=== PATIENT | female | born 1985 | race Caucasian/White ===

== ENCOUNTER → 2019-06-19 | Outpatient (CLI) | payer OTHER ==
--- NOTE | 2019-06-19 13:05 | US ---
EXAMINATION TYPE: Transabdominal DATE OF EXAM: 06/19/2019 12:37 PM COMPARISON: NONE CLINICAL HISTORY: absent heart sounds O76. Office could not find heart tones, EXAM PERFORMED: OBTA EXAM MEASUREMENTS: GESTATIONAL AGE / DATING Physician Established: Not yet established Dates by LMP: (13 weeks/1 days) EDC: 12/24/2019 Dates by First Scan: No previous this is first scan Dates by Current Scan for: (12 weeks/6 days) EDC: 12/26/2019 MATERNAL ANATOMY Uterus: 12.6 x 8.5 x 7.4cm Right Ovary: 4.4 x 2.1 x 2.9cm Left Ovary: 2.9 x 3.2 x 2.2cm Post CDS / Adnexa: wnl Presence of free fluid: no Presence of corpus luteal cyst: 1.9cm on the right ovary Presence of subchorionic bleed: no GESTATION / SURVEY CRL: 6.4 (12 weeks/6 days) MSD: wnl Yolk Sac (normal less than 6mm): not seen Heart Rate: 161 bpm Rhythm: Normal IUP: Live IUP Date of LMP: 03/19/2019 IMPRESSION: Single live intrauterine with a sonographic age of 12 weeks and 6 days and estimated date o f delivery of 12/26/2019, concordant with menstrual age. Heart rate is seen measuring 161 bpm.
== END | disposition home or self-care (01) ==
LOC: RADUSWWP 12:17
PROVIDERS: ATTEND Obstetrics & Gynecology
DX: O76 Abnormality in fetal heart rate and rhythm complicating labor and delivery (principal); Z3A.12 12 weeks gestation of pregnancy
CPT/HCPCS: 76801

== ENCOUNTER → 2019-07-27 | Outpatient (CLI) | payer OTHER ==
[2019-07-27 13:08] LABS: HCT 25.6 % (34.0-46.0); HGB 8.4 gm/dL (11.4-16.0); MCH 30.6 pg (25.0-35.0); MCHC 32.8 g/dL (31.0-37.0); MCV 93.1 fL (80.0-100.0); Mean Platelet Volume 10.5; Platelet Count 217 k/uL (150-450); RBC 2.75 m/uL (3.80-5.40); RDW 11.7 % (11.5-15.5); WBC 8.5 k/uL (3.8-10.6)
[2019-07-27 18:57] LABS: T4, Free (Free Thyroxine) 1.1 ng/dL (0.80-1.80)
[2019-07-27 19:20] LABS: T3, Uptake 19 % (23-37)
[2019-07-27 19:52] LABS: Hepatitis B Surface Antigen Non-Reactive (Non-Reactive)
[2019-07-27 20:38] LABS: HIV 1 AB Non-Reactive (Non-Reactive); HIV 2 AB Non-Reactive (Non-Reactive); HIV AB P24 Non-Reactive (Non-Reactive); HIV P24 AG Non-Reactive (Non-Reactive)
[2019-07-28 04:18] LABS: Toxoplasma Antibody (IgG) <3.0 IU/mL (<7.2); Toxoplasma Antibody (IgM) <3.0 AU/mL (<8.0)
[2019-07-28 10:48] LABS: Alpha Fetoprotein 48.4 ng/mL; Alpha Fetoprotein (M.O.M) 1.02; B-HCG (M.O.M.) 0.84; Gestational Age (days) 2; Human Chorionic Gonadotropin 14.7 IU/mL; Inhibin A (M.O.M.) 0.72; Interpretation SeeBelow; Maternal Age at EDD (Yrs) 34; Smoker Yes; Unconjugated Estriol (M.O.M.) 1.15
== END | disposition home or self-care (01) ==
LOC: LABWHC1 12:43
PROVIDERS: ATTEND Obstetrics & Gynecology
DX: Z34.82 Encounter for supervision of other normal pregnancy, second trimester (principal); Z3A.00 Weeks of gestation of pregnancy not specified
CPT/HCPCS: 36415; 82105; 82565; 82677; 82947; 84439; 84443; 84479; 84702; 85027; 86336; 86762; 86777; 86778; 86780; 86850; 86900; 86901; 87340; 87390

== ENCOUNTER 2019-09-09 12:15 | Outpatient (CLI) | payer OTHER ==
[2019-09-09 13:25] LABS: Basophils % (A) 0 %; Eosinophils # (A) 0.2 k/uL (0-0.7); Eosinophils % (A) 2 %; HCT 23.8 % (34.0-46.0); HGB 7.8 gm/dL (11.4-16.0); Lymphocytes # (A) 2.8 k/uL (1.0-4.8); Lymphocytes % (A) 34 %; MCH 30.8 pg (25.0-35.0); MCHC 32.8 g/dL (31.0-37.0); MCV 93.8 fL (80.0-100.0); Mean Platelet Volume 8.6; Monocytes # (A) 0.5 k/uL (0-1.0); Monocytes % (A) 6 %; Neutrophils # (A) 4.6 k/uL (1.3-7.7); Neutrophils % (A) 56 %; Platelet Count 263 k/uL (150-450); RBC 2.54 m/uL (3.80-5.40); RDW 12.1 % (11.5-15.5); WBC 8.3 k/uL (3.8-10.6)
[2019-09-09 13:52] LABS: ALT 12 U/L (4-34); AST 17 U/L (14-36); African American GFR (CKD) >90 (>60 ml/min/1.73 sqM); Blood Urea Nitrogen 7 mg/dL (7-17); LDH 355 U/L (313-618); Non-African American GFR(CKD) >90 (>60 ml/min/1.73 sqM)
[2019-09-09 14:00] LABS: Protein/Creatinine Ratio,Urine 1.106
[2019-09-09 14:06] LABS: Appearance,Urine Clear (Clear); Bacteria,Urine Rare /hpf; Bilirubin,Urine Negative (Negative); Blood,Urine Small (Negative); Color,Urine Yellow; Glucose,Urine (UA) Negative (Negative); Granular Casts,Urine 6 /lpf (0); Hyaline Casts,Urine 4 /lpf (0-2); Ketones,Urine Negative (Negative); Leukocyte Esterase,Urine Negative (Negative); Mucus,Urine Rare /hpf; Nitrite,Urine Negative (Negative); Protein,Urine 1+ (Negative); RBC,Urine 6 /hpf (0-5); Specific Gravity,Urine 1.012 (1.001-1.035); Squamous Epithelial Cell,Urine <1 /hpf (0-4); Urobilinogen,Urine <2.0 mg/dL (<2.0); WBC,Urine 2 /hpf (0-5)
--- NOTE | 2019-09-09 16:33 | P.MSEPDOC ---
Presenting Problems - Arrival Data Date of Arrival on Unit: 09/09/19 Time of Arrival on Unit: 12:15 Mode of Transport: Ambulatory - Complaint OB-Reason for Admission/Chief Complaint: PIH Comment: pt sent to triage with orders for pih labs, pt had bp 152/90 in office and +2 protein in urine Medical History - Information : 5 Para: 3 Term: 3 : 0 Abortions: Spontaneous or Elective: 1 Number of Living Children: 3 - Gestational Age Gestational Age by PARUL (wks/days): 24 Weeks and 4 Days Review of Systems - Review of Systems Constitutional: No problems Breast: No problems ENT: No problems Cardiovascular: No problems Respiratory: No problems Gastrointestinal: No problems Genitourinary: No problems Musculoskeletal: No problems Neurological: No problems Skin: No problems Physician Notification (Pre) - Physician Notified Physician Notified Date: 09/09/19 Physician Notified Time: 14:52 New Order Received: Yes (D/c home with 24 hour urine instructions) Disposition - Disposition OB Disposition: Discharge to home Discharge Date: 09/09/19 Discharge Time: 15:15 I agree with the RN Medical Screening Exam: Yes Risk & Benefit of care provided described in d/c instruction: Yes Diagnosis: GESTATIONAL PROTEINURIA, SECOND TRIMESTER
== END 2019-09-09 15:15 | disposition home or self-care (01) ==
LOC: FBPOP 12:15
PROVIDERS: ATTEND Obstetrics & Gynecology
DX: O12.12 Gestational proteinuria, second trimester (principal); Z3A.24 24 weeks gestation of pregnancy
CPT/HCPCS: 81001; 82565; 82570; 83615; 84156; 84450; 84460; 84520; 84550; 85025

== ENCOUNTER 2019-09-10 18:57 | Outpatient (CLI) | payer OTHER ==
[2019-09-10 20:48] LABS: Total Protein 24 Hour,Urine 825 mg/24hr (42.0-225.0); Total Volume 24 Hour,Urine 1250 mls (800-1800)
[2019-09-10 21:39] VITALS: BP 162/90; PULSE 84; RESP 16; TEMP 98.1
--- NOTE | 2019-09-10 22:10 | P.MSEPDOC ---
Presenting Problems - Arrival Data Date of Arrival on Unit: 09/10/19 Time of Arrival on Unit: 18:57 Mode of Transport: Ambulatory - Complaint OB-Reason for Admission/Chief Complaint: PIH Medical History - Information : 5 Para: 3 Term: 3 : 0 Abortions: Spontaneous or Elective: 1 Number of Living Children: 3 - Gestational Age Gestational Age by PARUL (wks/days): 24 Weeks and 5 Days - History Complications: Chronic HTN, Smoker Review of Systems - Review of Systems Constitutional: No problems Breast: No problems ENT: No problems Cardiovascular: No problems Respiratory: No problems Gastrointestinal: No problems Genitourinary: No problems Musculoskeletal: No problems Neurological: No problems Skin: No problems Vital Signs - Temperature Temperature: 98.1 F Temperature Source: Temporal Artery Scan - Pulse Right Brachial Pulse Rate: 84 Pulse Assessment Method: Automatic Cuff - Respirations Respiratory Rate: 16 Oxygen Delivery Method: Room Air O2 Sat by Pulse Oximetry: 100 - Blood Pressure Right Arm Blood Pressure: 162/90 Blood Pressure Mean: 114 Blood Pressure Source: Automatic Cuff Medical Screen Scoring (Pre) - Cervical Exam Dilation: Exam Deferred Effacement: Exam Deferred Membranes: Intact - Uterine Contractions Frequency: N/A Duration: N/A Intensity: N/A - Maternal Vital Signs Maternal Temperature: N/A Maternal Blood Pressure: N/A Signs of Preeclampsia: N/A Maternal Respirations: N/A - Maternal Trauma Maternal Trauma: N/A - Assessment - Baby A Baseline FHR: 140 Heart Rate - NICHD Category: Category I (Normal) = 0 NST: Reactive Position: N/A Station: N/A - Total Score - Baby A Total Score - Baby A: 0 - Total Score - Baby B Total Score - Baby B: 0 - Total Score - Baby C Total Score - Baby C: 0 - Level of Risk - Baby A Level of Risk - Baby A: Low (0-5) - Level of Risk - Baby B Level of Risk - Baby B: Low (0-5) - Level of Risk - Baby C Level of Risk - Baby C: Low (0-5) Physician Notification (Pre) - Physician Notified Physician Notified Date: 09/10/19 Physician Notified Time: 21:16 New Order Received: Yes - Notification Comment Comment: Dr. Carlson given report on pt in tr. aware of pt hx. Pt 24 urine results given. BPs results. Orders recieved to admit pt obv. Coming in. Dr. Carlson called back. Pt wishes to leave AMA. Pt instructed to attend apt with dr. paz at 10 am on 09/10. AMA consent signed by PT. Disposition - Disposition OB Disposition: Discharge to home (Patient left AGAINST MEDICAL ADVICE) Discharge Date: 09/10/19 Discharge Time: 21:24 I agree with the RN Medical Screening Exam: Yes Risk & Benefit of care provided described in d/c instruction: Yes Diagnosis: RELATED CONDITIONS, UNSPECIFIED, SECOND TRIMESTER (Patient was supposed to state for admission yesterday per Dr. Paz for evlation of proteinuria. Pt refused admission and was insturcted to do a 24 hr and return today. Patient returned at 7pm. Initial BP elevated to 162/90. Serial BPs done while awaiiting 24hr urine were 130-140/80's. 24hr urine returned elevated at 825mg. I advised admission for close observation and serial BPs. Patient refused admission and left AGAINST MEDICAL ADVICE. I instructed nurse to have patient see Dr. Paz at 10:00am in the office tommorow to discuss further evaluaton/survellance/managment. ) Additional Diagnoses: Non-compliance with medical care.
== END 2019-09-10 21:24 | disposition left against medical advice (07) ==
LOC: FBPOP 18:57
PROVIDERS: ATTEND Obstetrics & Gynecology
DX: O13.2 Gestational [pregnancy-induced] hypertension without significant proteinuria, second trimester (principal); O99.332 Smoking (tobacco) complicating pregnancy, second trimester; Z3A.24 24 weeks gestation of pregnancy; F17.200 Nicotine dependence, unspecified, uncomplicated
CPT/HCPCS: 81050; 84156; G0463; 99213

== ENCOUNTER 2019-10-30 10:44 | Outpatient (CLI) | payer OTHER ==
[2019-10-30 11:24] LABS: Appearance,Urine Clear (Clear); Bacteria,Urine Rare /hpf; Bilirubin,Urine Negative (Negative); Blood,Urine Small (Negative); Color,Urine Light Yellow; Glucose,Urine (UA) Negative (Negative); Ketones,Urine Negative (Negative); Leukocyte Esterase,Urine Negative (Negative); Nitrite,Urine Negative (Negative); Protein,Urine 2+ (Negative); RBC,Urine 2 /hpf (0-5); Specific Gravity,Urine 1.007 (1.001-1.035); Squamous Epithelial Cell,Urine <1 /hpf (0-4); Urobilinogen,Urine <2.0 mg/dL (<2.0); WBC,Urine 1 /hpf (0-5)
[2019-10-30 11:38] LABS: Basophils % (A) 0 %; Eosinophils # (A) 0.1 k/uL (0-0.7); Eosinophils % (A) 2 %; HCT 23.6 % (34.0-46.0); HGB 7.5 gm/dL (11.4-16.0); Lymphocytes # (A) 2.2 k/uL (1.0-4.8); Lymphocytes % (A) 30 %; MCH 29.7 pg (25.0-35.0); MCHC 31.8 g/dL (31.0-37.0); MCV 93.6 fL (80.0-100.0); Monocytes # (A) 0.4 k/uL (0-1.0); Monocytes % (A) 5 %; Neutrophils # (A) 4.5 k/uL (1.3-7.7); Neutrophils % (A) 61 %; Platelet Count 266 k/uL (150-450); RBC 2.52 m/uL (3.80-5.40); RDW 12.4 % (11.5-15.5); WBC 7.4 k/uL (3.8-10.6)
[2019-10-30 11:39] VITALS: BP 156/86
[2019-10-30 11:57] LABS: Protein/Creatinine Ratio,Urine 5.392
[2019-10-30 12:02] LABS: ALT 12 U/L (4-34); AST 18 U/L (14-36); African American GFR (CKD) >90 (>60 ml/min/1.73 sqM); Blood Urea Nitrogen 6 mg/dL (7-17); LDH 419 U/L (313-618); Non-African American GFR(CKD) >90 (>60 ml/min/1.73 sqM); Uric Acid 6.5 mg/dL (3.7-7.4)
--- NOTE | 2019-10-30 12:17 | P.PN ---
Progress Note - Text Progress Note Date: 10/30/19 Please see the [facility] intake notes in addition to this progress note. This patient is a 34-year-old 5 para 3 female estimated date of confinement 12/24/2019 estimated gestational age 32 and one sevenths weeks who presented to the office today to see the obstetrical nurse for an OB visit. Patient's care is per Dr. Paz and has been complicated by multiple medical problems including hypertension and proteinuria. Patient was seen by maternal medicine and was supposed to see them last week however did not go. She's had multiple compliance issues throughout this . She is also had long- standing proteinuria throughout this with the last 24-hour urine done in September with over 800 mg of protein. In the office patient's blood pressure was 142/92 she had 4+ proteinuria. Patient was advised to come to labor and delivery for evaluation of possible severe preeclampsia. Patient presented to labor and delivery and her blood pressures initially her 170/93 and ranged from that to 150s to 160s over 90s. Laboratory evaluation showed 2+ proteinuria, he moglobin of 7.5 (which appears to be chronic in etiology), and a protein to creatinine ratio 5.39. Patient reports significant peripheral edema. She repeatedly states that this is secondary to being overly active and different foods that she has eaten. Patient did have a biophysical in the office of 8 out of 8 and heart tones are reactive here in labor and delivery. I advised the patient at this time that she should be transferred immediately to a tertiary care facility for further observation and evaluation of severe preeclampsia. I explained the reasoning behind this to her in great detail in the presence of the nurse. Patient stated that she was refusing transfer and was leaving AGAINST MEDICAL ADVICE. At this time the patient disconnected her monitors and signed out AMA and left the triage area. I did advise her prior to leaving that if she left AGAINST MEDICAL ADVICE this could cause or maternal . She repeatedly made excuses for her blood pressure and symptomatology. Patient was advised to return at any time to be transferred. Patient is also advised to follow-up in the office.
== END 2019-10-30 11:52 | disposition left against medical advice (07) ==
LOC: FBPOP 10:44
PROVIDERS: ATTEND Obstetrics & Gynecology
DX: Z53.9 Procedure and treatment not carried out, unspecified reason (principal)
CPT/HCPCS: 59025; 81001; 82565; 82570; 83615; 84156; 84450; 84460; 84520; 84550; 85025

== ENCOUNTER 2019-11-12 16:38 | Outpatient (CLI) | payer OTHER ==
[2019-11-12 17:33] LABS: Basophils % (A) 0 %; Eosinophils # (A) 0.2 k/uL (0-0.7); Eosinophils % (A) 2 %; HCT 24.2 % (34.0-46.0); HGB 8.1 gm/dL (11.4-16.0); Lymphocytes # (A) 2.7 k/uL (1.0-4.8); Lymphocytes % (A) 29 %; MCH 31.3 pg (25.0-35.0); MCHC 33.3 g/dL (31.0-37.0); Mean Platelet Volume 9.2; Monocytes # (A) 0.6 k/uL (0-1.0); Monocytes % (A) 6 %; Neutrophils # (A) 5.6 k/uL (1.3-7.7); Neutrophils % (A) 61 %; Platelet Count 253 k/uL (150-450); RBC 2.58 m/uL (3.80-5.40); RDW 12.7 % (11.5-15.5); WBC 9.3 k/uL (3.8-10.6)
[2019-11-12 17:44] LABS: INR 0.9 (<1.2); Prothrombin Time 9.7 sec (9.0-12.0)
[2019-11-12 17:48] LABS: Appearance,Urine Clear (Clear); Bacteria,Urine Rare /hpf; Bilirubin,Urine Negative (Negative); Blood,Urine Small (Negative); Color,Urine Yellow; Glucose,Urine (UA) Negative (Negative); Hyaline Casts,Urine 19 /lpf (0-2); Ketones,Urine Negative (Negative); Leukocyte Esterase,Urine Negative (Negative); Mucus,Urine Rare /hpf; Nitrite,Urine Negative (Negative); Protein,Urine 2+ (Negative); RBC,Urine 3 /hpf (0-5); Specific Gravity,Urine 1.014 (1.001-1.035); Squamous Epithelial Cell,Urine 1 /hpf (0-4); Urobilinogen,Urine <2.0 mg/dL (<2.0); WBC,Urine 5 /hpf (0-5)
[2019-11-12 17:49] LABS: ALT 13 U/L (4-34); AST 19 U/L (14-36); African American GFR (CKD) >90 (>60 ml/min/1.73 sqM); Blood Urea Nitrogen 7 mg/dL (7-17); LDH 434 U/L (313-618); Non-African American GFR(CKD) >90 (>60 ml/min/1.73 sqM); Uric Acid 6.7 mg/dL (3.7-7.4)
[2019-11-12 18:28] LABS: Protein/Creatinine Ratio,Urine 2.655
[2019-11-13 10:25] VITALS: BP 149/92; PULSE 82; RESP 18; TEMP 98.4
--- NOTE | 2019-11-14 09:31 | P.MSEPDOC ---
Presenting Problems - Arrival Data Date of Arrival on Unit: 11/12/19 Time of Arrival on Unit: 16:41 Mode of Transport: Ambulatory - Complaint OB-Reason for Admission/Chief Complaint: PIH Comment: sent with written order for labwork Medical History - Information : 5 Para: 3 Term: 3 : 0 Abortions: Spontaneous or Elective: 1 Number of Living Children: 3 - Gestational Age Gestational Age by PARUL (wks/days): 34 Weeks and 0 Days - History Complications: Chronic HTN, Preeclampsia, Prior , Smoker Review of Systems - Review of Systems Constitutional: No problems Breast: No problems ENT: No problems Cardiovascular: No problems Respiratory: No problems Gastrointestinal: No problems Genitourinary: No problems Musculoskeletal: No problems Neurological: No problems Skin: No problems Vital Signs - Temperature Temperature: 98.4 F Temperature Source: Axillary - Pulse Apical Pulse Rate: 82 Pulse Assessment Method: Automatic Cuff - Respirations Respiratory Rate: 18 Oxygen Delivery Method: Room Air - Blood Pressure Right Arm Sitting Blood Pressure: 149/92 Blood Pressure Mean: 111 Blood Pressure Source: Automatic Cuff Medical Screen Scoring (Pre) - Cervical Exam Dilation: Exam Deferred Effacement: Exam Deferred Membranes: Intact - Uterine Contractions Frequency: N/A - Maternal Vital Signs Maternal Temperature: N/A Maternal Blood Pressure: Diastolic > 89 = 1 Signs of Preeclampsia: 3+ edema of dependent extremities = 2 Maternal Respirations: N/A - Maternal Trauma Maternal Trauma: N/A - Assessment - Baby A Baseline FHR: 135 Heart Rate - NICHD Category: Category I (Normal) = 0 NST: Reactive Position: N/A - Total Score - Baby A Total Score - Baby A: 3 - Total Score - Baby B Total Score - Baby B: 3 - Total Score - Baby C Total Score - Baby C: 3 - Level of Risk - Baby A Level of Risk - Baby A: Low (0-5) - Level of Risk - Baby B Level of Risk - Baby B: Low (0-5) - Level of Risk - Baby C Level of Risk - Baby C: Low (0-5) Physician Notification (Pre) - Physician Notified Physician Notified Date: 11/12/19 Physician Notified Time: 18:27 New Order Received: Yes (Pt may leave with Protien/Creatinine ratio pending) - Notification Comment Comment: Pt states she cannont stay any longer and is leaving, [facility] called and reported all lab results except the Protein/Creatine ratio which is still pending. Pt has scheduled MFM appt next week. [facility] states she may be discharged with pending lab. Disposition - Disposition OB Disposition: Triage, Discharge to home, Written follow up instructions reviewed Discharge Date: 11/12/19 Discharge Time: 18:28 I agree with the RN Medical Screening Exam: Yes Risk & Benefit of care provided described in d/c instruction: Yes Diagnosis: GESTATIONAL EDEMA WITH PROTEINURIA, THIRD TRIMESTER
== END 2019-11-12 18:28 | disposition home or self-care (01) ==
LOC: FBPOP 16:38
PROVIDERS: ATTEND Obstetrics & Gynecology
DX: O13.9 Gestational [pregnancy-induced] hypertension without significant proteinuria, unspecified trimester (principal); O14.90 Unspecified pre-eclampsia, unspecified trimester; Z3A.00 Weeks of gestation of pregnancy not specified
CPT/HCPCS: 59025; 81001; 82565; 82570; 83615; 84156; 84450; 84460; 84520; 84550; 85025; 85610; 85730

== ENCOUNTER 2019-11-20 11:22 | Inpatient (IN) | payer OTHER ==
[2019-11-20] MEDS ORDERED: BETAMET ACET-BETAMETH SOD PHOS 6 MG/ML MDV IM SCH (12:15)
[2019-11-20 12:39] LABS: Appearance,Urine Clear (Clear); Bilirubin,Urine Negative (Negative); Blood,Urine Small (Negative); Color,Urine Yellow; Glucose,Urine (UA) Negative (Negative); Hyaline Casts,Urine 5 /lpf (0-2); Ketones,Urine Negative (Negative); Leukocyte Esterase,Urine Negative (Negative); Mucus,Urine Rare /hpf; Nitrite,Urine Negative (Negative); Protein,Urine 2+ (Negative); RBC,Urine 4 /hpf (0-5); Specific Gravity,Urine 1.009 (1.001-1.035); Squamous Epithelial Cell,Urine 1 /hpf (0-4); Urobilinogen,Urine <2.0 mg/dL (<2.0); WBC,Urine 3 /hpf (0-5)
[2019-11-20 12:44] LABS: Glucose,Whole Blood 81 mg/dL (75-99)
[2019-11-20 12:45] LABS: Basophils % (A) 0 %; Eosinophils # (A) 0.1 k/uL (0-0.7); Eosinophils % (A) 1 %; HCT 25.7 % (34.0-46.0); HGB 8.4 gm/dL (11.4-16.0); Lymphocytes # (A) 2.3 k/uL (1.0-4.8); Lymphocytes % (A) 27 %; MCH 30.3 pg (25.0-35.0); MCHC 32.6 g/dL (31.0-37.0); MCV 92.8 fL (80.0-100.0); Mean Platelet Volume 9.7; Monocytes # (A) 0.4 k/uL (0-1.0); Monocytes % (A) 4 %; Neutrophils # (A) 5.5 k/uL (1.3-7.7); Neutrophils % (A) 65 %; Platelet Count 259 k/uL (150-450); RBC 2.77 m/uL (3.80-5.40); RDW 12.7 % (11.5-15.5); WBC 8.4 k/uL (3.8-10.6)
[2019-11-20] MEDS ORDERED: CITRIC ACID-SODIUM CITRATE 15 ML CUP PO ONE (12:46)
--- NOTE | 2019-11-20 12:49 | P.HPOB ---
History of Present Illness H&P Date: 11/20/19 Chief Complaint: Intrauterine at 35 weeks with poorly controlled htn: IUG Cecilia is a 34-year-old G3 for PE 3 with 3 prior sections that is being's admitted today for repeat section at 35 weeks gestation per maternal- medicine recommendations. She has been followed throughout the has been seen by maternal- medicine for advanced maternal age history of hypertension and hypoglycemia. Her course has been, K by u ltrasound showing a EIF and over the last several visits 6 IUGR baby. 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 She has been followed as closely as we can throughout the although there've been multiple times which she is declined treatment and care. Today she is undergoing a repeat section. We did offer and thoroughly discussed tube ligation at the same time but she refuses to have that done. She is aware that should she get again it could put her life in jeopardy and that should be to high risk to have her baby delivered here. We've been following her preeclamptic labs which have been normal other than her protein which has been elevated at last check 2.655. Approximately 2-3 weeks ago she was supposed to be transferred to maternal- medicine but she signed herself out AGAINST MEDICAL ADVICE. She did see [facility] medicine yesterday an ultrasound was done showing baby A in the 2nd percentile with elevated Dopplers and the recommendation was to deliver her as soon as is feasible due to same. It is very difficult with her medical history to say if she has preeclampsia although she is certainly at high risk of getting preeclampsia with her current medical conditions. We'll plan to consult medicine postoperatively for assistance in blood pressure management. She will receive IV labetalol preoperatively as her last blood pressure was 160/99. On physical exam vital signs other than blood pressure are stable and afebrile. Heart regular lungs clear to auscultation bilaterally. Extremities are without pain there is 2+ pitting edema, however this is actually significant improvement over what it has been deep tendon reflexes are 1+. She denies headache, epigastric pain and has no visual changes. Abdomen soft gravid uterus is noted. A category 1 tracing is noted. Past Medical History Past Medical History: COPD, Hypertension Additional Past Medical History / Comment(s): Migraines, Displacement Disk Disease, Chronic Back Pain History of Any Multi-Drug Resistant Organisms: None Reported Past Surgical History: Appendectomy, Section Additional Past Surgical History / Comment(s): displacement disc disease, brain lesions Smoking Status: Current every day smoker Medications and Allergies Home Medications Medication Instructions Recorded Confirmed Type Gabapentin [Neurontin] 600 mg PO TID 09/04/13 11/20/19 History Pantoprazole Sodium [Protonix] 20 mg PO DAILY 09/04/13 11/20/19 History Ibuprofen [Motrin] 600 mg PO Q8HR PRN 08/26/14 11/20/19 History Acetaminophen Tab [Tylenol] 2 tab PO TID 09/09/19 11/20/19 History Albuterol Inhaler [Ventolin Hfa 1 puff INHALATION RT-TID 11/20/19 11/20/19 History Inhaler] Allergies Allergy/AdvReac Type Severity Reaction Status Date / Time chocolate flavor Allergy Severe Anaphylaxis Verified 11/20/19 12:00 cephalexin monohydrate Allergy Swelling Verified 11/20/19 12:00 [From Keflex] latex Allergy Anaphylaxis Verified 11/20/19 12:00 morphine Allergy Nausea & Verified 11/20/19 12:00 Vomiting Penicillins AdvReac Severe Abdominal Verified 11/20/19 12:00 Pain Exam Osteopathic Statement: *. No significant issues noted on an osteopathic structural exam other than those noted in the History and Physical/Consult. Vital Signs Temp Pulse Resp BP 11/20/19 11:45 97.8 F 77 16 156/92 Intake and Output 11/19/19 11/20/19 11/20/19 22:59 06:59 14:59 Other: Weight 75.296 kg - OBG Physical Exam Breast: both: normal (no masses) Abdomen: bowel sounds normal, no diffuse tenderness, no bruit present, no guarding noted, no hepatomegaly, no splenomegaly, no mass Vulva: both: normal Vagina: normal moisture, no discharge Cervix: no lesion, no discharge Uterus: normal size, normal contour Adnexa: both: normal Anus/Rectum: normal perianal skin, no rectal mass, no hemorrhoids, heme negative Results Abnormal Lab Results - Last 24 Hours (Table) 11/20/19 Range/Units 12:16 Urine Protein 2+ H (Negative) Urine Blood Small H (Negative) Hyaline Casts 5 H (0-2) /lpf Urine Mucus Rare H (None) /hpf
[2019-11-20 12:50] LABS: Amphetamine Screen,Urine Not Detected (NotDetected); Barbiturate Screen,Urine Not Detected (NotDetected); Benzodiazepines Screen,Urine Not Detected (NotDetected); Cocaine Screen,Urine Not Detected (NotDetected); Methadone Screen, Urine Not Detected (NotDetected); Opiate Screen,Urine Not Detected (NotDetected); Oxycodone Screen, Urine Not Detected (NotDetected); Phencyclidine Screen,Urine Not Detected (NotDetected); Tricyclic Antidepressant,Urine Not Detected (NotDetected); Urn Cannabinoid Scrn Not Detected (NotDetected)
[2019-11-20 13:01] LABS: ALT 12 U/L (4-34); AST 20 U/L (14-36); African American GFR (CKD) >90 (>60 ml/min/1.73 sqM); Blood Urea Nitrogen 7 mg/dL (7-17); LDH 432 U/L (313-618); Non-African American GFR(CKD) >90 (>60 ml/min/1.73 sqM); Uric Acid 7.2 mg/dL (3.7-7.4)
[2019-11-20] MEDS ORDERED: LABETALOL 5 MG/ML VIAL MDV IVP PRN ×3 (13:06)
[2019-11-20] MEDS ORDERED: hydrALAZINE HCL 20 MG/ML 1 ML VIAL IVP PRN (13:06)
[2019-11-20 13:26] LABS: Protein/Creatinine Ratio,Urine 4.29
[2019-11-20 13:46] LABS: INR 0.9 (<1.2); Partial Thromboplastin Time 23.8 sec (22.0-30.0); Prothrombin Time 9.4 sec (9.0-12.0)
[2019-11-20] MEDS: LACTATED RINGERS 1,000 ML IV SCH ×3 (16:27→18:37)
[2019-11-20] MEDS ORDERED: MIDAZOLAM 2 MG/2 ML VIAL ONE (17:00)
[2019-11-20] MEDS ORDERED: KETOROLAC 30 MG/ML 1 ML VIAL ONE (17:00)
[2019-11-20] MEDS ORDERED: ONDANSETRON 4 MG/2 ML VIAL ONE (17:00)
[2019-11-20] MEDS ORDERED: diphenhydrAMINE 50 MG CAP PO PRN (17:38)
[2019-11-20] MEDS ORDERED: ONDANSETRON 4 MG/2 ML VIAL IVP PRN (17:38)
[2019-11-20] MEDS ORDERED: ACETAMINOPHEN TAB 325 MG TAB PO PRN (17:38)
[2019-11-20] MEDS ORDERED: ZOLPIDEM 5 MG TAB PO PRN (17:38)
[2019-11-20] MEDS ORDERED: SIMETHICONE 80 MG CHEWABLE PO PRN (17:38)
[2019-11-20] MEDS ORDERED: diphenhydrAMINE 25 MG CAP PO PRN (17:38)
[2019-11-20] MEDS ORDERED: diphenhydrAMINE 50 MG/ML 1 ML VIAL IVP PRN ×2 (17:38)
[2019-11-20] MEDS ORDERED: KETOROLAC 30 MG/ML 1 ML VIAL IVP PRN (17:38)
[2019-11-20] MEDS ORDERED: METOCLOPRAMIDE 5 MG/ML 2 ML VIAL IVP PRN (17:38)
[2019-11-20] MEDS ORDERED: NALOXONE 0.4 MG/ML 1 ML VIAL IV PRN ×2 (17:38→17:40)
[2019-11-20] MEDS ORDERED: HYDROmorphone PCA 10 MG/50 ML BAG IV PRN (17:40)
--- NOTE | 2019-11-20 17:44 | P.OP ---
Date of Procedure: 11/20/19 Preoperative Diagnosis: Intrauterine at 35 weeks: Hypertension: IUGR Postoperative Diagnosis: Same Procedure(s) Performed: Repeat low transverse section Anesthesia: spinal Surgeon: Lamine Paz Slot Floorperson #1: Emerita Olivera Estimated Blood Loss (ml): 450 IV fluids (ml): 800 Urine output (ml): 100 Pathology: other (Placenta) Condition: stable Disposition: floor Operative Findings: Male scores of 8 and 9 at one and 5 minutes respectively and weight was 3 lbs. 8 oz. Description of Procedure: Patient was taken to the operating suite where a spinal anesthetic was found be adequate. She was prepped and draped in the normal sterile fashion and placed in dorsal supine position with leftward tilt. Initially a Pfannenstiel skin incision was made and this incision was then carried through to the underlying layer of the fashion with second knife. Fascia was then nicked in the midline and this opening was extended laterally with Chow scissors. Superior and inferior aspect of this incision were then grasped tented up and bluntly and sharply dissected off the rectus muscles. Rectus muscles were then divided the midline and blunt dissection the peritoneum was performed. This opening was then extended superiorly and inferiorly with good visualization of both bowel bladder. Bladder was noted be high and therefore cautious dissection the b ladder out of the operative field was made. Once bladder was out of the operative field knife was used to incise uterus this incision was fully developed with a hemostat. It was then extended bluntly and head was atraumatically delivered. Mouth and nares were then bulb suctioned and nursery personnel was present to assume care. Umbilical cord was then clamped cut usual fashion. Placenta was then delivered intact and Pitocin was added to the IV. Uterus was then exteriorized cleared of clots and debris and closed in 1 layer with 0 Vicryl suture. Once excellent hemostasis was obtained blood and debris was suctioned from the posterior cul-de-sac and uterus was reinserted into the abdomen. Peritoneal layer was then reapproximate with 0 Vicryl suture fascial layer was closed with 0 Vicryl suture. One layer of 3-0 Vicryl was placed in deep subcuticular tissues reapproximate the skin and close the space. Skin was then closed with estela. Sponge lap and needle counts were all correct 2 and patient was then taken to the recovery room in stable and satisfactory condition. It should be noted that the immigration services officer was present for delivery.
[2019-11-20] MEDS: LABETALOL 200 MG TAB PO SCH (21:09)
[2019-11-20] MEDS: GABAPENTIN 300 MG CAP PO SCH (22:01)
[2019-11-21] MEDS: SENNOSIDES-DOCUSATE SODIUM 1 EACH TAB PO SCH ×3 (01:32→21:16)
[2019-11-21] MEDS: LACTATED RINGERS 1,000 ML IV SCH (01:54)
[2019-11-21] MEDS: IBUPROFEN 600 MG TAB PO PRN ×2 (04:23→11:27)
[2019-11-21 06:30] LABS: Basophils % (A) 0 %; Eosinophils % (A) 0 %; HCT 27.4 % (34.0-46.0); HGB 8.7 gm/dL (11.4-16.0); Lymphocytes # (A) 2.1 k/uL (1.0-4.8); Lymphocytes % (A) 10 %; MCH 29.9 pg (25.0-35.0); MCHC 31.8 g/dL (31.0-37.0); MCV 93.8 fL (80.0-100.0); Mean Platelet Volume 9.6; Monocytes % (A) 5 %; Neutrophils % (A) 84 %; Platelet Count 277 k/uL (150-450); RBC 2.92 m/uL (3.80-5.40); RDW 12.7 % (11.5-15.5); WBC 21.3 k/uL (3.8-10.6)
[2019-11-21] MEDS ORDERED: PANTOPRAZOLE 40 MG TABLET PO SCH ×2 (07:30)
[2019-11-21] MEDS: LABETALOL 200 MG TAB PO SCH ×2 (08:46→21:16)
[2019-11-21] MEDS: GABAPENTIN 300 MG CAP PO SCH ×3 (08:46→22:07)
[2019-11-21] MEDS ORDERED: NICOTINE 21MG/24HR PATCH TRANSDERM SCH ×2 (09:00)
[2019-11-21] MEDS ORDERED: HYDROcodone/APAP 5-325MG 1 EACH TAB PO PRN (10:43)
--- NOTE | 2019-11-21 10:48 | P.PNOBGPC ---
Subjective - Subjective Principal diagnosis: Status repeat section postoperative day #1 Interval history: Patient is doing okay but complaining of some pain this morning. She is passing flatus but no bowel movement yet and she is urinating without difficulty. Lochia is decreasing. Baby is in level I nursery due to prematurity. Patient is stating she wants to go home today. Patient reports: Reports appetite normal, Reports voiding normally, Reports pain poorly controlled, Reports ambulating normally [place]: other (In level I nursery) Objective - Vital Signs Latest vital signs: Vital Signs Temp Pulse Resp BP Pulse Ox 11/21/19 08:00 97.7 F 57 L 16 136/76 95 11/21/19 04:00 97.9 F 72 16 116/81 96 11/20/19 23:40 98.7 F 75 16 128/87 97 11/20/19 19:40 98.9 F 83 16 138/90 99 11/20/19 19:10 98.2 F 83 16 146/83 98 11/20/19 18:25 67 16 169/78 11/20/19 18:10 64 14 143/84 99 11/20/19 17:55 65 16 145/71 11/20/19 17:41 98.8 F 68 16 122/76 98 11/20/19 17:40 99 11/20/19 16:09 97.8 F 77 16 156/92 11/20/19 11:45 97.8 F 77 16 156/92 Intake and Output 11/20/19 11/21/19 11/21/19 22:59 06:59 14:59 Output Total 100 410 Balance -100 -410 Output: Urine 100 410 Uretheral (Gregory) 100 Other: # Voids 1 Weight 75.296 kg - Exam Extremities: Present: edema (2-3+ pitting edema bilateral lower extremities) Abdomen: Present: normal appearance, soft (Positive bowel sounds 4). Absent: distention, tenderness Incision: Present: normal, dry, intact. Absent: erythematous Uterus: Present: normal, firm. Absent: tenderness - Labs Labs: Abnormal Lab Results - Last 24 Hours (Table) 11/20/19 11/20/19 11/21/19 Range/Units 12:06 12:16 05:20 WBC 21.3 H (3.8-10.6) k/uL RBC 2.77 L 2.92 L (3.80-5.40) m/uL Hgb 8.4 L 8.7 L (11.4-16.0) gm/dL Hct 25.7 L 27.4 L (34.0-46.0) % Neutrophils # 18.0 H (1.3-7.7) k/uL Urine Protein 2+ H (Negative) Urine Blood Small H (Negative) Hyaline Casts 5 H (0-2) /lpf Urine Mucus Rare H (None) /hpf Assessment and Plan Assessment: Impression is status post repeat section postoperative day #1, history of chronic hypertension, proteinuria, history of severe IUGR. Plan: Will continue with postoperative and care today. Will switch to oral pain medication today. Will await consultation from medicine and nephrology. Patient is advised that I do not recommend discharge today due to need for consultation with other physicians and her pain needs to be well controlled prior to discharge. She is encouraged to visit baby in level I nursery.
--- NOTE | 2019-11-21 16:09 | P.NPCON ---
History of Present Illness - Reason for Consult Consult date: 11/21/19 proteinuria - Chief Complaint IUGR - History of Present Illness 34-year-old white female coming to the hospital for . She is 35 weeks . This is her fifth and fourth baby. Nephrology was consulted for proteinuria. She developed preeclampsia and had IUGR on ultrasound and emergent was done at 35 weeks. She admits having no proteinuria prior to getting . She has history of migraine and chronic hypertension since age 16. She takes naproxen since then and currently on Motrin 600 mg 3 times daily for the last 4 years. She denies diabetes. HIV and hepatitis B negative. No history of any autoimmune disease. Review of Systems Constitutional: Reports as per HPI Past Medical History Past Medical History: COPD, Hypertension Additional Past Medical History / Comment(s): Migraines, Displacement Disk Disease, Chronic Back Pain History of Any Multi-Drug Resistant Organisms: None Reported Past Surgical History: Appendectomy, Section Additional Past Surgical History / Comment(s): displacement disc disease, brain lesions Past Anesthesia/Blood Transfusion Reactions: No Reported Reaction Past Psychological History: No Psychological Hx Reported Smoking Status: Current every day smoker Past Alcohol Use History: None Reported, Occasional Past Drug Use History: None Reported - Past Family History Father History Unknown: Yes Family Medical History: No Reported History Medications and Allergies Home Medications Medication Instructions Recorded Confirmed Type Gabapentin [Neurontin] 600 mg PO TID 09/04/13 11/20/19 History Pantoprazole Sodium [Protonix] 20 mg PO DAILY 09/04/13 11/20/19 History Ibuprofen [Motrin] 600 mg PO Q8HR PRN 08/26/14 11/20/19 History Acetaminophen Tab [Tylenol] 2 tab PO TID 09/09/19 11/20/19 History Albuterol Inhaler [Ventolin Hfa 1 puff INHALATION RT-TID 11/20/19 11/20/19 History Inhaler] Allergies Allergy/AdvReac Type Severity Reaction Status Date / Time chocolate flavor Allergy Severe Anaphylaxis Verified 11/20/19 12:00 cephalexin monohydrate Allergy Swelling Verified 11/20/19 12:00 [From Keflex] latex Allergy Anaphylaxis Verified 11/20/19 12:00 morphine Allergy Nausea & Verified 11/20/19 12:00 Vomiting Physical Exam Vitals: Vital Signs Temp Pulse Resp BP Pulse Ox 11/21/19 12:00 97.7 F 80 18 133/78 98 11/21/19 08:00 97.7 F 57 L 16 136/76 95 11/21/19 04:00 97.9 F 72 16 116/81 96 11/20/19 23:40 98.7 F 75 16 128/87 97 11/20/19 19:40 98.9 F 83 16 138/90 99 11/20/19 19:10 98.2 F 83 16 146/83 98 11/20/19 18:25 67 16 169/78 11/20/19 18:10 64 14 143/84 99 11/20/19 17:55 65 16 145/71 11/20/19 17:41 98.8 F 68 16 122/76 98 11/20/19 17:40 99 11/20/19 16:09 97.8 F 77 16 156/92 Intake and Output 11/21/19 11/21/19 11/21/19 06:59 14:59 22:59 Output Total 410 150 Balance -410 -150 Output: Urine 410 150 Uretheral (Gregory) 100 Other: # Voids 1 1 No acute distress S1-S2 heard Lungs clear Abdomen distended Edema Results - Lab Results Most recent lab results Urine Creatinine 63.4 mg/dL 11/20/19 12:16 Urine Total Protein 272 mg/dL 11/20/19 12:16 11/21/19 05:20 11/20/19 12:22 Assessment and Plan Assessment: #1 nephrotic range proteinuria with a suspicion of nephrotic syndrome. Possibilities include -Preeclampsia -Glomerulonephritis with suspected minimal change disease from NSAIDs -Chronic hypotension leading to proteinuria #2 chronic migraines on NSAID #3 hypertension with preeclampsia status post delivery #4 volume overload with edema Plan: #1 continue labetalol for better blood pressure control with the goal of less than 120 systolic. #2 check serology for lupus and vasculitis. #3 discontinue NSAID use. Advised to use alternative for migraines other than Motrin. #4 check lipid profile and albumin. #5 if proteinuria persists in a week, consider adding michell inhibitors and may need renal biopsy to look for underlying kidney disease. #6 stable from nephrology point of view for discharge to be followed up in the clinic in a week
[2019-11-21] MEDS: HYDROcodone/APAP 7.5-325MG 1 EACH TAB PO PRN ×2 (17:17→23:51)
--- NOTE | 2019-11-21 17:27 | P.CONS ---
History of Present Illness - Reason for Consult Consult date: 11/21/19 medical management - Chief Complaint Status post elective - History of Present Illness Patient is a 34-year-old female with a known history of COPD, hypertension currently not on any medications at home, migraine headaches, degenerative disc disease and chronic back pain and currently everyday smoker was admitted to the hospital for repeat at 35 weeks gestation due to high risk . Patient is status post postoperative day 1. Patient was also followed in the preeclampsia clinic due to proteinuria at 2.65. Patient was also considered at high risk for getting preeclampsia. Medicine service was consulted for blood pressure control. Patient is currently on labetalol 200 mg twice a day. Patient's home medications include Neurontin, Tylenol and Motrin an daily basis. Patient is also on albuterol inhalation puffs. Currently patient denied any complaints of chest pain or shortness of breath. No cough or sputum production. No fever no chills. Patient does have bilateral lower extremity edema. Patient denied any headache. No visual symptoms. Laboratory data showed WBC 21.3, hemoglobin 8.7, platelets 277 INR 0.9 BUN 7 and creatinine 0.75-4 days greater than 90 AST 20 and ALT 12, LDH 432 Urinalysis showed 2+ protein, urine creatinine 60.4 and protein/creatinine ratio 4.29, Total protein is 272 UDS negative Review of Systems Constitutional: Patient denies any fever or chills . No generalized weakness or weight loss. Abdomen: Patient denied nausea vomiting and diarrhea and abdominal pain. Cardiovascular: Patient denies any chest pain or short of breath no palpitations. Respiratory: patient denied any cough is from production. No shortness of breath Neurologic: Patient denied any numbness or tingling headache. Musculoskeletal: Patient denies any complaints of joint swelling or deformity. Skin: Negative Psychiatric: Negative Endocrine: No heat or cold intolerance. No recent weight gain. Genitourinary: No dysuria or hematuria. All other 14 point ROS negative except the above Past Medical History Past Medical History: COPD, Hypertension Additional Past Medical History / Comment(s): Migraines, Displacement Disk Disease, Chronic Back Pain History of Any Multi-Drug Resistant Organisms: None Reported Past Surgical History: Appendectomy, Section Additional Past Surgical History / Comment(s): displacement disc disease, brain lesions Past Anesthesia/Blood Transfusion Reactions: No Reported Reaction Past Psychological History: No Psychological Hx Reported Smoking Status: Current every day smoker Past Alcohol Use History: None Reported, Occasional Past Drug Use History: None Reported - Past Family History Father History Unknown: Yes Family Medical History: No Reported History Medications and Allergies Home Medications Medication Instructions Recorded Confirmed Type Gabapentin [Neurontin] 600 mg PO TID 09/04/13 11/20/19 History Pantoprazole Sodium [Protonix] 20 mg PO DAILY 09/04/13 11/20/19 History Ibuprofen [Motrin] 600 mg PO Q8HR PRN 08/26/14 11/20/19 History Acetaminophen Tab [Tylenol] 2 tab PO TID 09/09/19 11/20/19 History Albuterol Inhaler [Ventolin Hfa 1 puff INHALATION RT-TID 11/20/19 11/20/19 History Inhaler] Allergies Allergy/AdvReac Type Severity Reaction Status Date / Time chocolate flavor Allergy Severe Anaphylaxis Verified 11/20/19 12:00 cephalexin monohydrate Allergy Swelling Verified 11/20/19 12:00 [From Keflex] latex Allergy Anaphylaxis Verified 11/20/19 12:00 morphine Allergy Nausea & Verified 11/20/19 12:00 Vomiting Physical Exam Vitals: Vital Signs Temp Pulse Resp BP Pulse Ox 11/21/19 08:00 97.7 F 57 L 16 136/76 95 11/21/19 04:00 97.9 F 72 16 116/81 96 11/20/19 23:40 98.7 F 75 16 128/87 97 11/20/19 19:40 98.9 F 83 16 138/90 99 11/20/19 19:10 98.2 F 83 16 146/83 98 11/20/19 18:25 67 16 169/78 11/20/19 18:10 64 14 143/84 99 11/20/19 17:55 65 16 145/71 11/20/19 17:41 98.8 F 68 16 122/76 98 11/20/19 17:40 99 11/20/19 16:09 97.8 F 77 16 156/92 11/20/19 11:45 97.8 F 77 16 156/92 Intake and Output 11/20/19 11/21/19 11/21/19 22:59 06:59 14:59 Output Total 100 410 150 Balance -100 -410 -150 Output: Urine 100 410 150 Uretheral (Gregory) 100 Other: # Voids 1 1 Weight 75.296 kg PHYSICAL EXAMINATION: Patient is lying in the bed comfortably, no acute distress, awake alert and oriented.. HEENT: Normocephalic. Neck is supple. Pupils reactive. Nostrils clear. Oral cavity is moist. Ears reveal no drainage. Neck reveals no JVD, carotid bruits, or thyromegaly. CHEST EXAMINATION: Trachea is central. Symmetrical expansion. Lung higuera clear to auscultation and percussion. CARDIAC: Normal S1, S2 with no gallops. No murmurs ABDOMEN: Soft. Bowel sounds normal. No organomegaly. No abdominal bruits. Extremities: 2+ bilateral pedal edema. No clubbing or cyanosis Neurologically awake, alert, oriented x3 with well-coordinated movements. No focal deficits noted Skin: No rash or skin lesions. Psychiatric: Coperative. Nonsuicidal Musculoskeletal: No joint swelling or deformity. Normal range of motion. Results CBC & Chem 7: 11/21/19 05:20 11/20/19 12:22 Labs: Abnormal Lab Results - Last 24 Hours (Table) 11/20/19 11/20/19 11/21/19 Range/Units 12:06 12:16 05:20 WBC 21.3 H (3.8-10.6) k/uL RBC 2.77 L 2.92 L (3.80-5.40) m/uL Hgb 8.4 L 8.7 L (11.4-16.0) gm/dL Hct 25.7 L 27.4 L (34.0-46.0) % Neutrophils # 18.0 H (1.3-7.7) k/uL Urine Protein 2+ H (Negative) Urine Blood Small H (Negative) Hyaline Casts 5 H (0-2) /lpf Urine Mucus Rare H (None) /hpf Assessment and Plan Assessment: status post repeat section postoperative day #1 Hx of severe IUGR Uncontrolled hypertension with preeclampsia. Patient does have protein/creatinine ratio >0.3 Proteinuria rule out glomerulonephritis Hypertension. Patient is currently not taking any medications at home. Noncompliance with medications Chronic migraine headache Degenerative disc disease Chronic back pain. Takes Motrin, Tylenol and Neurontin. Ongoing nicotine addiction DVT prophylaxis with the ambulation Plan: Patient will be continued on labetalol 200 mg twice daily to keep the systolic blood pressure less than 140mm hg. consulted regarding lisinopril if the blood pressure is still elevated. nephrology was consulted for further workup of proteinuria. will continue to follow and further recommendations based on the clinical course. Patient was counseled excessively for smoking cessation and medication complaints. Thank you for your consult. Time with Patient: Greater than 30
[2019-11-21 23:25] LABS: Urine Creatinine 32.5 mg/dL
[2019-11-22] MEDS: HYDROcodone/APAP 7.5-325MG 1 EACH TAB PO PRN ×2 (07:02→13:12)
[2019-11-22 07:36] LABS: ALT 13 U/L (4-34); AST 25 U/L (14-36); African American GFR (CKD) >90 (>60 ml/min/1.73 sqM); Albumin 2.6 g/dL (3.5-5.0); Alkaline Phosphatase 81 U/L (38-126); Anion Gap 4 mmol/L; Blood Urea Nitrogen 18 mg/dL (7-17); Calcium 8.2 mg/dL (8.4-10.2); Carbon Dioxide 25 mmol/L (22-30); Chloride 106 mmol/L (98-107); Cholesterol 228 mg/dL (<200); Glucose 62 mg/dL (74-99); HDL Cholesterol 68 mg/dL (40-60); LDL Cholesterol,Calculated 109 mg/dL (0-99); Non-African American GFR(CKD) 81 (>60 ml/min/1.73 sqM); Potassium 4.4 mmol/L (3.5-5.1); Sodium 135 mmol/L (137-145); Total Bilirubin 0.3 mg/dL (0.2-1.3); Total Protein 5.3 g/dL (6.3-8.2); Triglycerides 253 mg/dL (<150)
[2019-11-22 08:36] VITALS: RESP 18; TEMP 98.3
[2019-11-22] MEDS: GABAPENTIN 300 MG CAP PO SCH (10:18)
[2019-11-22] MEDS: LABETALOL 200 MG TAB PO SCH (10:19)
[2019-11-22] MEDS ORDERED: FUROSEMIDE 20 MG TAB PO STA (12:43)
[2019-11-22] MEDS: SENNOSIDES-DOCUSATE SODIUM 1 EACH TAB PO SCH (12:43)
[2019-11-22 13:07] LABS: Basophils % (A) 0 %; Eosinophils # (A) 0.2 k/uL (0-0.7); Eosinophils % (A) 2 %; HCT 25.3 % (34.0-46.0); Lymphocytes # (A) 3.5 k/uL (1.0-4.8); Lymphocytes % (A) 28 %; MCH 29.8 pg (25.0-35.0); MCHC 31.5 g/dL (31.0-37.0); MCV 94.6 fL (80.0-100.0); Mean Platelet Volume 9.4; Monocytes # (A) 0.9 k/uL (0-1.0); Monocytes % (A) 7 %; Neutrophils # (A) 7.5 k/uL (1.3-7.7); Neutrophils % (A) 61 %; Platelet Count 261 k/uL (150-450); RBC 2.67 m/uL (3.80-5.40); RDW 12.8 % (11.5-15.5); WBC 12.5 k/uL (3.8-10.6)
--- NOTE | 2019-11-22 13:16 | P.DS ---
Providers Date of admission: 11/20/19 11:56 Expected date of discharge: 11/22/19 Attending physician: Lamine Paz Consults: 11/20/19 15:30 Consult Physician Routine Consulting Provider: Mario Victor Consult Reason/Comments: chronic hypertension Do you want consulting provider notified?: Yes 11/20/19 15:34 Consult Physician Routine Consulting Provider: Zechariah Frost Consult Reason/Comments: proteinuria Do you want consulting provider notified?: Yes Primary care physician: Stated None Hospital Course: This is a 34-year-old female 5 para 3 at 35-2/7 weeks who presented for repeat low transverse section due to severe intrauterine growth restriction. Please see dictated history and physical for details of patient's admission. Postoperatively she has done okay. She did have some issues with pain control on postoperative day 1 but is doing better now. She is passing flatus and bowel movement. Lochia is decreasing. She is bottle feeding. Baby is in level I nursery. She has noticed some weeping on her right lower extremity. She states she gets this after all of her pregnancies due to the swelling. She uses some milk thistle and other herbal things at home and this usually resolves it. She was given a one-time dose of Lasix per medicine prior to discharge. Vital signs are stable with blood pressures under control. Abdomen is soft with positive bowel sounds 4. Incision is clean dry and intact with jigna in place. Extremities show 2-3+ eating edema with some weeping of clear fluid on the right lower extremity. Impression is status post repeat section postoperative day #2, renal disease, chronic hypertension, COPD. Land is to discharge home today as patient is very anxious to go home. She will be given a prescription for labetalol 200 mg twice a day and Red Bud. She has signed a start taking opioid consent form and was counseled regarding opioid use. She is advised that she needs to follow-up with Dr. Paz in 1 week and also nephrology in 1 week. She is advised she will need to call the office tomorrow to make these appointments. She is advised to call the office if she has any further questions or concerns prior to her appointment times. She is advised to return to the hospital if any severe symptoms. Jigna will be removed and Steri-Strips placed prior to discharge. Procedures: Repeat low transverse section on 11/20/2019 Patient Condition at Discharge: Stable Plan - Discharge Summary New Discharge Prescriptions: New HYDROcodone/APAP 7.5-325MG [Red Bud 7.5-325] 1 each PO Q6H PRN #30 tab PRN Reason: Moderate To Severe Pain Labetalol [Trandate] 200 mg PO BID #28 tab Continue Pantoprazole Sodium [Protonix] 20 mg PO DAILY Gabapentin [Neurontin] 600 mg PO TID Discontinued Ibuprofen [Motrin] 600 mg PO Q8HR PRN PRN Reason: Pain No Action Acetaminophen Tab [Tylenol] 2 tab PO TID Albuterol Inhaler [Ventolin Hfa Inhaler] 1 puff INHALATION RT-TID Discharge Medication List Gabapentin [Neurontin] 600 mg PO TID 09/04/13 [History] Pantoprazole Sodium [Protonix] 20 mg PO DAILY 09/04/13 [History] Acetaminophen Tab [Tylenol] 2 tab PO TID 09/09/19 [History] Albuterol Inhaler [Ventolin Hfa Inhaler] 1 puff INHALATION RT-TID 11/20/19 [History] HYDROcodone/APAP 7.5-325MG [Red Bud 7.5-325] 1 each PO Q6H PRN #30 tab 11/22/19 [Rx] Labetalol [Trandate] 200 mg PO BID #28 tab 11/22/19 [Rx] Follow up Appointment(s)/Referral(s): Lamine Paz DO [Doctor of Osteopathic Medicine] - 1 Week Donna Andrews MD [STAFF PHYSICIAN] - 1 Week Activity/Diet/Wound Care/Special Instructions: Instructions 1. Do not begin any exercise program for 3 weeks. 2. Do not resume sexual relations for 3 weeks or longer if uncomfortable. 3. You may take tub baths or showers at any time. 4. You may use tampons if desired after 3 weeks. 5. Keep the area of episiotomy (stitches) clean and dry. 6. If you are not nursing, wear a good fitting, supportive bra during the day and limit fluid intake for at least 1 week to prevent breast engorgement. 7. Call the office, [phone], within the next week to make appointment for your 6 week checkup if it has not already been made. 8. Report any of the following occurrences to the doctor promptly: a. Heavy, excessive bleeding b. Chills, fever c. Burning or frequency of urination d. Pain or redness and breasts if nursing e. Increasing pain or swelling in episiotomy (stitches). In addition to the above instructions, the following additional should be followed: 1. No heavy lifting or straining (exercising) until after 6 week checkup. 2. Keep abdominal incision clean and dry: You may wear a dressing if more comfortable. 3. Make office appointment for 10 days after going home or as instructed by her doctor. Discharge Disposition: HOME SELF-CARE
--- NOTE | 2019-11-22 13:59 | P.PN ---
Subjective Progress Note Date: 11/22/19 Follow-up for proteinuria. Microalbumin creatinine ratio about the cramps seems to be improving . Still has lower extremity edema no nausea vomiting. Complaining of abdominal pain from the surgical site. Objective - Vital Signs Vital signs: Vital Signs Temp 98.3 F 11/22/19 08:35 Pulse 86 11/22/19 08:35 Resp 18 11/22/19 08:35 BP 138/86 11/22/19 08:35 Pulse Ox 98 11/22/19 08:35 Intake & Output 11/21/19 11/22/19 11/22/19 18:59 06:59 18:59 Output Total 150 Balance -150 Output: Urine 150 Other: # Voids 1 1 1 # Bowel Movements 1 - Exam No acute distress S1-S2 heard Lungs clear Abdomen distended soft Lower extremity edema - Labs CBC & Chem 7: 11/22/19 12:54 11/22/19 05:34 Labs: Abnormal Lab Results - Last 24 Hours (Table) 11/21/19 11/22/19 11/22/19 Range/Units 18:40 05:34 12:54 WBC 12.5 H (3.8-10.6) k/uL RBC 2.67 L (3.80-5.40) m/uL Hgb 8.0 L (11.4-16.0) gm/dL Hct 25.3 L (34.0-46.0) % Sodium 135 L (137-145) mmol/L BUN 18 H (7-17) mg/dL Glucose 62 L (74-99) mg/dL Calcium 8.2 L (8.4-10.2) mg/dL Total Protein 5.3 L (6.3-8.2) g/dL Albumin 2.6 L (3.5-5.0) g/dL Triglycerides 253 H (<150) mg/dL Cholesterol 228 H (<200) mg/dL LDL Cholesterol, Calc 109 H (0-99) mg/dL HDL Cholesterol 68 H (40-60) mg/dL Ur Random Microalbumin 35.5 H (0.0-1.9) mg/dL Microalb/Creat Ratio 1092 H (0-30) mg/g Creat Assessment and Plan Assessment: #1 nephrotic range proteinuria with a suspicion of nephrotic syndrome. Possibilities include -Preeclampsia -Glomerulonephritis with suspected minimal change disease from NSAIDs -Chronic hypotension leading to proteinuria #2 chronic migraines on NSAID #3 hypertension with preeclampsia status post delivery #4 volume overload with edema Plan: #1 continue labetalol for better blood pressure control with the goal of less than 120 systolic. With volume management blood pressure improves. -She will benefit from Ed/ARB's/Aldactone if proteinuria persists in a week in the office. #2 serology for lupus and vasculitis requested yesterday.. #3 discontinue NSAID use. Advised to use alternative for migraines other than Motrin. #4 she has nephrotic syndrome based on lipid profile/low albumin /edema and proteinuria. #5 if proteinuria persists in a week, consider adding ed inhibitors and may need renal biopsy to look for underlying kidney disease. #6 stable from nephrology point of view for discharge to be followed up in the clinic in a week
[2019-11-22 15:59] VITALS: BP 132/79; PULSE 97
[2019-11-23 12:38] LABS: DNA Double-Stranded NEGATIVE (NEGATIVE)
[2019-11-24 14:14] LABS: C-ANCA <1:20 Titer (<1:20)
[2019-11-25 11:51] LABS: Anti-Glomerular Basement Memb 2 UNITS (0-20)
== END 2019-11-22 14:30 | disposition home or self-care (01) | DRG 787 ==
LOC: FBPOP 11:22 → 4FBP 11:56
PROVIDERS: ADMIT Obstetrics & Gynecology; ATTEND Obstetrics & Gynecology
PROC: 10D00Z1 Extraction of Products of Conception, Low, Open Approach (ICD-10-PCS; principal; 2019-11-20 17:15)
DX: O11.4 Pre-existing hypertension with pre-eclampsia, complicating childbirth (principal); O99.354 Diseases of the nervous system complicating childbirth; O36.5930 Maternal care for other known or suspected poor fetal growth, third trimester, not applicable or unspecified; G40.409 Other generalized epilepsy and epileptic syndromes, not intractable, without status epilepticus; N05.9 Unspecified nephritic syndrome with unspecified morphologic changes; O34.211 Maternal care for low transverse scar from previous cesarean delivery; O99.02 Anemia complicating childbirth; D64.9 Anemia, unspecified; O99.334 Smoking (tobacco) complicating childbirth; F17.200 Nicotine dependence, unspecified, uncomplicated; G43.909 Migraine, unspecified, not intractable, without status migrainosus; O99.52 Diseases of the respiratory system complicating childbirth; G47.33 Obstructive sleep apnea (adult) (pediatric); J44.9 Chronic obstructive pulmonary disease, unspecified; O99.89 Other specified diseases and conditions complicating pregnancy, childbirth and the puerperium; G89.29 Other chronic pain; O99.284 Endocrine, nutritional and metabolic diseases complicating childbirth; E16.2 Hypoglycemia, unspecified; E87.70 Fluid overload, unspecified; Z37.0 Single live birth; Z3A.35 35 weeks gestation of pregnancy; Z79.899 Other long term (current) drug therapy; Z91.14 Patient's other noncompliance with medication regimen; Z90.49 Acquired absence of other specified parts of digestive tract; Z88.1 Allergy status to other antibiotic agents; Z88.5 Allergy status to narcotic agent; Z88.0 Allergy status to penicillin
CPT/HCPCS: 59025; 80053; 80061; 80306; 81001; 82043; 82565; 82570; 83516; 83615; 84156; 84450; 84460; 84520; 84550; 85025; 85610; 85730; 86038; 86160; 86225; 86255; 86850; 86900; 86901; 88307; 96360; 99214

== ENCOUNTER → 2020-05-05 | Outpatient (CLI) | payer OTHER ==
[2020-05-05 12:18] LABS: HCT 34.8 % (34.0-46.0); HGB 11.4 gm/dL (11.4-16.0); MCH 30.9 pg (25.0-35.0); MCHC 32.8 g/dL (31.0-37.0); MCV 94.2 fL (80.0-100.0); Mean Platelet Volume 8.2; Platelet Count 249 k/uL (150-450); WBC 9.3 k/uL (3.8-10.6)
[2020-05-05 12:29] LABS: Appearance,Urine Cloudy (Clear); Bacteria,Urine Rare /hpf; Bilirubin,Urine Negative (Negative); Blood,Urine Negative (Negative); Color,Urine Light Yellow; Glucose,Urine (UA) Negative (Negative); Ketones,Urine Negative (Negative); Leukocyte Esterase,Urine Negative (Negative); Nitrite,Urine Negative (Negative); PH, Urine 5.5 (5.0-8.0); Protein,Urine Negative (Negative); RBC,Urine 1 /hpf (0-5); Specific Gravity,Urine 1.006 (1.001-1.035); Squamous Epithelial Cell,Urine 6 /hpf (0-4); Urobilinogen,Urine <2.0 mg/dL (<2.0); WBC,Urine <1 /hpf (0-5)
[2020-05-05 13:02] LABS: Creatinine,Urine Random 27.8 mg/dL; Protein/Creatinine Ratio,Urine 0.54
[2020-05-05 20:02] LABS: % Iron Saturation 32.17 (12.00-45.00); African American GFR (CKD) 75.9 (60.0-200.0); Albumin 3.8 g/dL (3.80-4.90); Albumin/Globulin Ratio 1.73 (1.60-3.17); Anion Gap 7.2 mmol/L (4.00-12.00); BUN/Creat Ratio 19.09 Ratio (12.00-20.00); Carbon Dioxide 23.8 mmol/L (21.6-31.8); Globulin 2.2 g/dL (1.6-3.3); Non-African American GFR(CKD) 65.5 (60.0-200.0); Phosphorus 3.5 mg/dL (2.4-5.1); Potassium 4.4 mmol/L (3.5-5.5); Total Bilirubin 0.3 mg/dL (0.2-1.2)
[2020-05-05 20:12] LABS: Ferritin 34.4 ng/mL (10.0-291.0)
[2020-05-05 20:47] LABS: Total Volume 24 Hour,Urine 2350 mL
[2020-05-05 21:26] LABS: Anti-DNA, DS unit <1.0 IU/mL; DNA Double-Stranded NEGATIVE (NEGATIVE)
[2020-05-05 22:26] LABS: Total Protein 24 Hour,Urine 143.4 mg/24Hr
== END | disposition home or self-care (01) ==
LOC: LABWHC1 11:38
PROVIDERS: ATTEND Nurse Practitioner Family
DX: I10 Essential (primary) hypertension (principal); R80.9 Proteinuria, unspecified; N25.81 Secondary hyperparathyroidism of renal origin; E55.9 Vitamin D deficiency, unspecified
CPT/HCPCS: 36415; 80053; 81001; 81050; 82306; 82530; 82570; 82728; 83516; 83540; 83550; 83735; 83883; 83970; 84100; 84156; 84443; 85027; 86038; 86160; 86162; 86225; 86255; 86334; 86335

== ENCOUNTER → 2024-10-19 | Outpatient (CLI) | payer OTHER ==
[2024-10-19 18:31] LABS: Basophils # (A) 0.04 X 10*3/uL (0.00-0.10); Basophils % (A) 0.4 %; Eosinophils # (A) 0.12 X 10*3/uL (0.04-0.35); Eosinophils % (A) 1.1 %; HCT 38.7 % (37.2-46.3); Lymphocytes # (A) 3.89 X 10*3/uL (0.90-5.00); Lymphocytes % (A) 36.3 %; MCH 28.6 pg (27.0-32.0); MCV 92.4 FL (80.0-97.0); Mean Platelet Volume 11.7 FL (9.5-12.2); Monocytes # (A) 0.68 X 10*3/uL (0.20-1.00); Monocytes % (A) 6.3 %; NRBC Per 100 WBC 0 X 10*3/uL (0.00-0.01); Neutrophils # (A) 5.97 X 10*3/uL (1.80-7.70); Neutrophils % (A) 55.6 %; Platelet Count 273 X 10*3/uL (140-440); RBC 4.19 X 10*6/uL (4.10-5.20); RDW 12.6 % (11.5-14.5); WBC 10.73 X 10*3/uL (4.50-10.00)
[2024-10-19 18:49] LABS: ALT 9 U/L (8-44); AST 15 U/L (13-35); Albumin 3.7 g/dL (3.8-4.9); Albumin/Globulin Ratio 1.61 Ratio (1.60-3.17); Alkaline Phosphatase 52 U/L (41-126); BUN/Creat Ratio 9.11 Ratio (12.00-20.00); Blood Urea Nitrogen 8.2 mg/dL (9.0-27.0); Calcium 8.6 mg/dL (8.7-10.3); Carbon Dioxide 20.5 mmol/L (21.6-31.8); Chloride 102 mmol/L (96-109); Globulin 2.3 g/dL (1.6-3.3); Glucose 85 mg/dL (70-110); HCG,Quantitative Serum <3.0 mIU/mL (0.0-6.0); Potassium 4.1 mmol/L (3.5-5.5); Sodium 133 mmol/L (135-145); Total Bilirubin 0.2 mg/dL (0.3-1.2)
== END | disposition home or self-care (01) ==
LOC: LABWHC1 15:27
PROVIDERS: ATTEND Family Medicine
DX: N92.6 Irregular menstruation, unspecified (principal)
CPT/HCPCS: 36415; 80053; 84702; 85025

== ENCOUNTER → 2024-11-04 | Outpatient (CLI) | payer OTHER ==
--- NOTE | 2024-11-05 08:49 | US ---
EXAMINATION TYPE: US pelvic complete DATE OF EXAM: 11/04/2024 COMPARISON: NONE CLINICAL INDICATION: Female, 39 years old with history of R10.2 PELVIC AND PERINEAL PAIN; TECHNIQUE: Transvaginal (TV) and Transabdominal (TA) . FINDINGS: Date of LMP: Unknown EXAM MEASUREMENTS: Uterus: 7.8 x 4.3 x 4.4 cm Endometrial Stripe: 1.1 cm Right Ovary: 3.2 x 1.7 x 1.8 cm Left Ovary: 2.6 x 1.5 x 1.6 cm 1. Uterus: retroverted 2. Endometrium: appears wnl 3. Right Ovary: wnl 4. Left Ovary: wnl 5. Bilateral Adnexa: wnl 6. Posterior cul-de-sac: free fluid IMPRESSION: No distinct abnormality appreciated O-RADS 2021 [email or web address] [facility], , 11/05/2024 8:46 AM
== END | disposition home or self-care (01) ==
LOC: RADUSWWP 15:07
PROVIDERS: ATTEND Family Medicine
DX: R10.2 Pelvic and perineal pain (principal)
CPT/HCPCS: 76830; 76856